=== PATIENT | female | born 1955 | race Caucasian/White ===

== ENCOUNTER → 2017-10-11 | Outpatient (CLI) | payer OTHER ==
--- NOTE | 2017-10-17 08:28 | SLEEP ---
[address] [address] SLEEP STUDY REPORT Name: AYSHASHAJI Olive Room: [facility]#: [id number] Admission: 10/11/17 Attend Phys: Tahira Armstrong Discharge: Date of : 59 Report #: [id number] THIS REPORT FOR: //name// CC: Tahira Hickey This study has been reviewed in its entirety by a board certified sleep specialist REFERRING PHYSICIAN: Dr. Tahira Clement Meng. TYPE OF STUDY: Polysomnography. INDICATION: Tiredness, fatigue, nonrefreshing sleep. METHODS: The following parameters were monitored: Frontal, central and occipital EEG; electro-oculogram; submentalis EMG; nasal and oral airflow; anterior tibialis EMG; body position and electrocardiogram. Additionally, thoracic and abdominal movements were recorded by inductance plethysmography. Oxygen saturation was monitored using pulse oximeter. The tracing was scored using 30-second epochs. Hypopneas were scored per the [employer] definition. SLEEP SUMMARY: Total recording time was 452.8 minutes. Total sleep time was 353 minutes. Sleep efficiency was 78%. Latency to sleep was 56.2 minutes. Latency to REM 173 minutes. SLEEP STAGING: Stage N1 of 1.4% of total sleep time, stage N2 of 47.2% of total sleep time, stage N3 of 16.7% of total sleep time and stage REM 34.7%, total sleep time. RESPIRATORY SUMMARY: During the study, the patient had a total of 2 apneas which were central and 19 hypopneas with overall apnea-hypopnea index of 3.6 per hour. It was noted the majority of these events were recorded during supine REM sleep with overall apnea-hypopnea index during supine sleep 12.4 per hour. OXIMETRY DATA: The average O2 saturation was 96%. The lowest O2 saturation recorded was 89%. CARDIAC DATA: The average heart rate was 60.4 beats per minute. No arrhythmias were reported. PLMS STATISTICS: The patient had 471 PLMS with a PLMS index of 80.1 per hour. However, the PLMS arousal index was 9.7. Please note the patient had elevated arousal index of 22.8 per hour. IMPRESSION: The above polysomnography does not demonstrate significant obstructive sleep apnea with overall apnea-hypopnea index of 3.6 [place] [address] SLEEP STUDY REPORT Name: SHAJI OLMSTEAD Room: [facility]#: [id number] Admission: 10/11/17 Attend Phys: Tahira Armstrong Discharge: Date of : 59 Report #: [id number] saturation 96%. Lowest O2 saturation was 89%. However, it was noted the patient had more frequent respiratory events during supine sleep. Elevated periodic limb movement of sleep. Clinical correlation is suggested. RECOMMENDATIONS: 1. Recommend avoiding supine sleep. 2. Avoid alcohol, sedatives, hypnotics close to bedtime. 3. Recommend maintaining ideal body weight. 4. Avoid driving or operating machinery while drowsy. 5. Recommend a clinical correlation for elevated periodic limb movement of sleep. <ELECTRONICALLY SIGNED> By: Susana Hobbs MD 10/17/17 [id number] Hobbs MD /nt
== END ==
LOC: M.SLEEPLAB 08:00
DX: G47.19 Other hypersomnia (principal); I10 Essential (primary) hypertension; E78.5 Hyperlipidemia, unspecified; J45.909 Unspecified asthma, uncomplicated; Z82.0 Family history of epilepsy and other diseases of the nervous system